=== PATIENT | female | born 1965 | race Caucasian/White ===

== ENCOUNTER 2020-08-06 15:58 | Observation (INO) ==
[2020-08-06] MEDS ORDERED: Naloxone 0.4 MG/ML INJ IVP PRN (20:02)
[2020-08-06] MEDS ORDERED: Ondansetron 4 MG/2 ML VIAL IVP PRN (20:02)
[2020-08-06] MEDS ORDERED: Ipratropium/Albuterol Neb 3 ML IH PRN (21:06)
[2020-08-06] MEDS ORDERED: Isovue-370 500 ML BOTTLE IVP ONE (21:07)
[2020-08-06] MEDS ORDERED: Buprenorphine Hcl/Naloxone Hcl 8-2MG SL PRN (22:10)
[2020-08-06] MEDS: *HR* Buprenorphine HCl 8 MG TAB.SUBL SL SCH (22:32)
[2020-08-06] MEDS ORDERED: methocarbamoL 500 MG TABLET PO ONE (22:58)
[2020-08-06] MEDS: MethylPREDNISolone 40 MG/ML VIAL IVP SCH (23:49)
[2020-08-06] MEDS: Melatonin 3 MG TABLET PO PRN (23:49)
[2020-08-06] MEDS: Ipratropium/Albuterol Neb 3 ML IH SCH (23:54)
[2020-08-07 02:46] LABS: Basophils % 0.4 %; Eosinophils # 0.1 K/mcL (0.0-0.6); Eosinophils % 0.8 %; Hematocrit 47.1 % (35.3-44.9); Hemoglobin 14.7 g/dL (11.5-15.4); Immature Granulocytes % 0.3 % (0-4); Lymphocytes # 2.1 K/mcL (0.6-4.6); Lymphocytes % 20.4 %; Mean Corpuscular HGB Conc 31.2 g/dL (31.6-35.5); Mean Corpuscular Hemoglobin 26.4 pg (28.0-33.3); Mean Corpuscular Volume 84.6 fL (83.0-100.0); Mean Platelet Volume 10.3 fL (9.4-12.4); Monocytes # 0.2 K/mcL (0.0-1.3); Monocytes % 1.8 %; Neutrophils # 7.7 K/mcL (1.6-8.9); Platelet Count 247 K/mcL (140-400); Red Blood Count 5.57 M/mcL (3.82-4.97); Red Cell Distribution Width 14.8 % (11.5-14.5); Segmented Neutrophils % 76.3 %; White Blood Count 10.1 K/mcL (4.3-11.1)
[2020-08-07 02:50] LABS: INR 1.1; Prothrombin Time 13.2 Seconds (9.4-12.1)
[2020-08-07 03:02] LABS: Alanine Aminotransferase 28 Units/L (7-52); Albumin 3.9 g/dL (3.5-5.7); Albumin/Globulin Ratio 1.2 (1.1-2.2); Alkaline Phosphatase 70 Units/L (34-104); Aspartate Amino Transferase 24 Units/L (13-39); BUN/Creatinine Ratio 13 (6-26); Bilirubin,Total 0.4 mg/dL (0.3-1.0); Blood Urea Nitrogen 9 mg/dL (6-20); Calcium 9.4 mg/dL (8.6-10.3); Carbon Dioxide 22 mEq/L (23-29); Chloride 106 mEq/L (98-107); Chol/HDL Ratio 4.6 (0-4.9); Cholesterol 170 mg/dL (< 200); Globulin 3.2 g/dL (2.4-3.5); Glucose 122 mg/dL (70-105); HDL Cholesterol 37 mg/dL (40-59); LDL Cholesterol,Calculated 114 mg/dL (< 100); Magnesium 2.2 mg/dL (1.6-2.6); Osmolality,Calculated 284 (280-300); Potassium 4.1 mEq/L (3.5-5.1); Sodium 137 mEq/L (136-145); Total Protein 7.1 g/dL (6.4-8.9); Triglycerides 93 mg/dL (< 150); eGFR For African Americans > 60 (> 60); eGFR For Non-African Americans > 60 (> 60)
[2020-08-07] MEDS: Ipratropium/Albuterol Neb 3 ML IH SCH ×5 (03:43→19:57)
[2020-08-07] MEDS ORDERED: Regadenoson 0.4 MG/5 ML SYRINGE IVP ONE (07:14)
[2020-08-07] MEDS: Aspirin Enteric Coated 81 MG Tablet PO SCH (10:34)
[2020-08-07] MEDS: MethylPREDNISolone 40 MG/ML VIAL IVP SCH (10:34)
[2020-08-07] MEDS: *HR* Buprenorphine HCl 8 MG TAB.SUBL SL SCH ×2 (10:34→19:48)
[2020-08-07] MEDS: Acetaminophen 325 MG TABLET PO PRN (10:35)
[2020-08-07] MEDS ORDERED: Perflutren Lipid Microsphere 1.3 ML in 0.9 % Sodium Chloride 8.7 ML IVP PRN (10:41)
[2020-08-07] MEDS: Nicotine 14 MG PATCH.TD24 TD SCH (13:52)
[2020-08-07] MEDS: predniSONE 20 MG TABLET PO SCH (13:52)
[2020-08-07] MEDS: hydrOXYzine pamoate 25 MG CAPSULE PO PRN (17:01)
[2020-08-07] MEDS ORDERED: Ketorolac 15 MG/ML VIAL IVP ONE (19:23)
[2020-08-07] MEDS: Melatonin 3 MG TABLET PO PRN (19:55)
[2020-08-08] MEDS: Ipratropium/Albuterol Neb 3 ML IH SCH ×5 (00:18→16:06)
[2020-08-08] MEDS: Acetaminophen 325 MG TABLET PO PRN ×3 (01:06→16:47)
[2020-08-08] MEDS: hydrOXYzine pamoate 25 MG CAPSULE PO PRN ×2 (01:06→16:48)
[2020-08-08] MEDS ORDERED: Ketorolac 15 MG/ML VIAL IVP ONE (04:35)
[2020-08-08 06:10] LABS: Basophils % 0.1 %; Hematocrit 45.6 % (35.3-44.9); Hemoglobin 14.1 g/dL (11.5-15.4); Immature Granulocytes % 0.7 % (0-4); Lymphocytes # 3.7 K/mcL (0.6-4.6); Lymphocytes % 19.1 %; Mean Corpuscular HGB Conc 30.9 g/dL (31.6-35.5); Mean Corpuscular Hemoglobin 25.9 pg (28.0-33.3); Mean Corpuscular Volume 83.7 fL (83.0-100.0); Mean Platelet Volume 10.2 fL (9.4-12.4); Monocytes # 0.9 K/mcL (0.0-1.3); Monocytes % 4.5 %; Neutrophils # 14.5 K/mcL (1.6-8.9); Platelet Count 245 K/mcL (140-400); Red Blood Count 5.45 M/mcL (3.82-4.97); Red Cell Distribution Width 15.1 % (11.5-14.5); Segmented Neutrophils % 75.6 %; White Blood Count 19.2 K/mcL (4.3-11.1)
[2020-08-08 06:45] LABS: BUN/Creatinine Ratio 19 (6-26); Blood Urea Nitrogen 15 mg/dL (6-20); Calcium 9.8 mg/dL (8.6-10.3); Carbon Dioxide 23 mEq/L (23-29); Chloride 104 mEq/L (98-107); Glucose 128 mg/dL (70-105); Osmolality,Calculated 286 (280-300); Potassium 3.6 mEq/L (3.5-5.1); Sodium 137 mEq/L (136-145); eGFR For African Americans > 60 (> 60); eGFR For Non-African Americans > 60 (> 60)
[2020-08-08] MEDS: predniSONE 20 MG TABLET PO SCH (09:46)
[2020-08-08] MEDS: Aspirin Enteric Coated 81 MG Tablet PO SCH (09:46)
[2020-08-08] MEDS: *HR* Buprenorphine HCl 8 MG TAB.SUBL SL SCH (09:46)
[2020-08-08] MEDS: Nicotine 14 MG PATCH.TD24 TD SCH (09:46)
[2020-08-08 11:31] VITALS: BP 103/67
== END 2020-08-08 17:20 | disposition home or self-care (01) ==
LOC: 3BNU → SUATTDRO 19:43
PROVIDERS: ADMIT Internal Medicine; ATTEND Internal Medicine